=== PATIENT | female | born 1970 | race Caucasian/White ===

== ENCOUNTER → 2016-09-06 | Outpatient (CLI) | payer BC ==
[~2016-09-06] MED LIST: BCPILLS PO; LVNIS150 SQ; WARF5TAB90 PO
== END | disposition home or self-care (01) ==
LOC: C.PATHSPEC 17:18
PROVIDERS: ATTEND Obstetrics & Gynecology
DX: N93.9 Abnormal uterine and vaginal bleeding, unspecified (principal)

== ENCOUNTER → 2016-09-06 | Outpatient (CLI) | payer BC ==
[2016-09-06 15:43] LABS: HEMATOCRIT 40.4 % (37-47); MEAN CELL VOLUME 93.1 fL (80-100); MEAN CORPUSCULAR HEMOGLOBIN 30.9 pg (25-34); MEAN CORPUSCULAR HGB CONC 33.2 g/dl (32-36); MEAN PLATELET VOLUME 9.1 fL (7.4-10.4); PLATELET COUNT 265 K/uL (130-400); RED BLOOD COUNT 4.34 M/uL (4.2-5.4); WHITE BLOOD COUNT 10.26 K/uL (4.8-10.8)
== END | disposition home or self-care (01) ==
LOC: C.LAB1850 14:51
PROVIDERS: ATTEND Obstetrics & Gynecology
DX: N93.9 Abnormal uterine and vaginal bleeding, unspecified (principal)

== ENCOUNTER → 2016-11-16 | Day surgery (SDC) | payer BC ==
[2016-10-31 12:44] VITALS: Ht 160 cm; Wt 79.5 kg
[~2016-11-16] VITALS: Ht 160 cm; Wt 79.5 kg
[~2016-11-16] MED LIST changes: +ATROPINE SULFATE 0.1 MG/ML 5ML SYR IV PRN; -BCPILLS PO; +DEXAMETHASONE SOD INJ 4 MG/ML VIAL ONE; +EpHEDrine SULFATE INJ 50 MG/ML AMP IV PRN; +FENTANYL CITRATE INJ 50 MCG/1 ML 2 ML VIAL IV PRN; +FENTANYL CITRATE INJ 50 MCG/1 ML 2 ML VIAL ONE; +HYDROmorphone INJ 1 MG/ML SYR IV PRN; +IBUPROFEN 600 MG TAB PO PRN; +KETOROLAC TROMETHAMINE 30 MG/ML VIAL IV. PRN; +KETOROLAC TROMETHAMINE 30 MG/ML VIAL ONE; +LACTATED RINGER'S 1000ML 1,000 ML IV SCH; +LIDOCAINE HCL 2% 2 ML VIAL (20MG/ML) ONE; -LVNIS150 SQ; +MIDAZOLAM HCL 1 MG/ML 2ML VIAL ONE; +ONDANSETRON INJ 2 MG/ML 2 ML VIAL IV PRN; +ONDANSETRON INJ 2 MG/ML 2 ML VIAL ONE; +OXYCODONE/ACETAMINOPHEN 5-325 TAB PO PRN; +PROMETHAZINE HCL INJ 12.5 MG in SODIUM CHLORIDE 0.9% 50ML 50 ML IV PRN; +PROPOFOL IV EMULSION 10 MG/ML 20 ML VIAL IV ONE; +SODIUM CHLORIDE 0.9% 1000ML 1,000 ML IV SCH; -WARF5TAB90 PO
--- NOTE | 2016-11-16 10:31 | History & Physical Bridge - [place] ---
H&P Re-Evaluation Bridge Note: I have examined the patient, reviewed the History & Physical and in the interval since the performance of the History & Physical I have noted the following changes of clinical significance: No changes noted
--- NOTE | 2016-11-16 11:14 | Discharge Instructions ---
Discharge Instructions Date of Service Nov 16, 2016. Admission Reason for Admission: Abnormal Uterine Bleeding, Abnormal Us Of Pelvis Discharge Discharge Diagnosis / Problem: after surgery Discharge Goals Goal(s): Routine recovery after surgery Activity Recommendations Activity Limitations: as noted below . Instructions / Follow-Up Instructions / Follow-Up ACTIVITY RECOMMENDATIONS: * Avoid tampons, douching, hot tubs, pools, and intercourse until bleeding has stopped. * May shower as usual. * No strenuous activity for 24-48 hours. After 24-48 hours, you may do anything you feel like doing (driving and sports are okay). SPECIAL CARE INSTRUCTIONS: Special Diet: * Mild nausea may occur in the immediate post-operative period. * Take clear liquids such as tea, cola or bouillon until all nausea has subsided; you may then resume your normal diet. Special Care: * Light bleeding and vaginal spotting can last from a few days to 3-4 weeks. Call your doctor if bleeding becomes heavier than the heaviest part of your period. * Check your temperature twice a day for one week. If it goes above 100.4 degrees Fahrenheit (38.0 Celsius), notify your doctor. * Call your doctor's office for an appointment for 4 weeks after your surgery. FOLLOW-UP VISIT: Call your doctor's office for an appointment for 4 weeks after your surgery. You already had appointment for 12/11/16 at 1215pm. That actually is better because we can check on your strings more at the 4wk zack. Use condoms for control for at least one month. Current Hospital Diet Patient's current hospital diet: Discharge Diet Recommended Diet: Regular Diet Procedures Procedures Performed: Dilatation And Curettage, Hysteroscopy, Mirena Insertion Pending Studies Studies pending at discharge: yes List of pending studies: pathology Medical Emergencies . Who to Call and When: Medical Emergencies: If at any time you feel your situation is an emergency, please call 911 immediately. . Non-Emergent Contact Non-Emergency issues call your: Rides Supervisor . . "Provider Documentation" section prepared by Yanira Nuñez. . VTE Core Measure Inpt VTE Proph given/why not?: Treatment not indicated
--- NOTE | 2016-11-16 11:20 | [facility] Operative Report ---
Operative Report Operative Date Nov 16, 2016. Pre-Operative Diagnosis Abnormal Uterine Bleeding, Abnormal ultrasound findings. Post-Operative Diagnosis Same, no evidence of endometrial lesion Procedure(s) Performed Dilatation And Curettage, Hysteroscopy, Mirena Insertion Surgeon Dr Nuñez Molasses Coloring Operator Surgeon(s) None Estimated Blood Loss 0ml Findings uterus sounds to 10cm. nl cavity. no evidence of obvious polyp. mirena IUD placed with ease. Lot # [id number]. Strings trimmed to 2cm. RNA probe obtained and sent prior to her prep. Fluids (cc crystalloids) 300 Specimens A: Endometrial Currettings Drains none Anesthesia general Complication(s) None Disposition Recovery Room / PACU Indications 46-year-old 3 para 3 with a history of abnormal uterine bleeding and ultrasound suggestive of endometrial polyps who desired surgical management. The patient desired Mirena IUD to manage her abnormal uterine bleeding after polyp removal as she also was a need for good contraception. She was aware of all of her treatment options and desired to proceed. Description of Procedure Patient was taken to the operating room and identified. After adequate general anesthesia was obtained she is placed in the dorsal lithotomy position, an RNA vaginal swab was obtained and then she was prepped and draped in the usual sterile fashion. The bladder was drained for clear yellow urine. A weighted speculum and anterior retractor placed to visualize the cervix which was grasped on its anterior lip with an Allis clamp. The cervix was sequentially dilated using Hegar dilators to 21. The diagnostic hysteroscope primed with saline media was gently placed through the cervical os into the uterine cavity with the findings as noted above. The hysteroscope was then removed. The uterus was curettaged to a gritty consistency and the specimen was sent. The Mirena IUD was readied and placed in the usual fashion and the strings were trimmed to 2 cm. At this point the procedure was terminated. The patient was returned to the supine position and awoken from anesthesia and transferred to the recovery room in stable condition. All sponge lap and needle counts are correct 2. I attest to the content of the Intraoperative Record and any orders documented therein. Any exceptions are noted below.
[2016-11-16 12:04] VITALS: TEMP 36.4
--- NOTE | 2016-11-16 12:09 | Anesthesia Progress Nt - [facility] ---
Anesthesia Post Op Note Date & Time Nov 16, 2016 at 12:08 Vital Signs Pain Intensity: 0 Vital Signs Past 12 Hours Date Time Temp Pulse Resp B/P (MAP) Pulse Ox O2 Delivery O2 Flow Rate FiO2 11/16/16 12:04 36.4 61 16 138/91 (107) 96 Room Air 11/16/16 11:46 117/79 11/16/16 11:44 58 14 96 11/16/16 11:44 36.5 58 14 11/16/16 11:41 113/79 11/16/16 11:39 59 15 11/16/16 11:39 60 15 96 11/16/16 11:36 106/76 11/16/16 11:34 62 16 97 11/16/16 11:34 64 16 11/16/16 11:31 109/76 11/16/16 11:29 63 16 11/16/16 11:29 63 16 96 11/16/16 11:26 108/72 11/16/16 11:24 66 15 11/16/16 11:24 64 15 98 11/16/16 11:21 98/69 11/16/16 11:19 64 12 99 11/16/16 11:19 64 12 11/16/16 11:16 110/81 11/16/16 11:15 102/70 11/16/16 11:15 36.4 61 12 102/70 97 Mask 6 11/16/16 09:54 37.0 70 16 133/89 (104) 98 Room Air Notes Mental Status: alert / awake / arousable, participated in evaluation Pt Amnestic to Procedure: Yes Nausea / Vomiting: adequately controlled Pain: adequately controlled Airway Patency, RR, SpO2: stable & adequate BP & HR: stable & adequate Hydration State: stable & adequate Anesthetic Complications: no major complications apparent
[2016-11-16 12:19] VITALS: BP 133/86; PULSE 61; O2SAT 100
[2016-11-19 14:27] LABS: CHLAMYDIA TRACH RNA*** NOT DETECTED (NOT DETECTED); GC (NEIS GONORRHOEAE)RNA** NOT DETECTED (NOT DETECTED)
== END | disposition home or self-care (01) ==
LOC: X.SURG 09:42
PROVIDERS: ATTEND Obstetrics & Gynecology
DX: N93.8 Other specified abnormal uterine and vaginal bleeding (principal); Z30.014 Encounter for initial prescription of intrauterine contraceptive device; Z87.891 Personal history of nicotine dependence

== ENCOUNTER → 2016-12-11 | Outpatient (CLI) | payer BC ==
--- NOTE | 2016-12-11 16:35 | DIAGNOSTIC IMAGING REPORT ---
LEFT LOWER EXTREMITY VENOUS DOPPLER CLINICAL HISTORY: Left lower extremity pain and swelling. COMPARISON STUDY: Left lower extremity venous Doppler October 19, 2015. TECHNIQUE: Sonography of the deep venous system of the left lower extremity was performed. Compression and augmentation were evaluated. FINDINGS: The left common femoral, superficial femoral and popliteal veins were compressible. Augmentation was normal. Flow was shown within the deep calf vessels. IMPRESSION: No evidence of deep venous thrombus within the left lower extremity. Electronically signed by: Yoan Hutchison M.D. 12/11/2016 4:33 PM Dictated Date/Time: 12/11/2016 4:33 PM
== END | disposition home or self-care (01) ==
LOC: C.ULTR 16:04
PROVIDERS: ATTEND Obstetrics & Gynecology
DX: I82.429 Acute embolism and thrombosis of unspecified iliac vein (principal); M79.669 Pain in unspecified lower leg

== ENCOUNTER → 2017-08-08 | Outpatient (CLI) | payer BC | END | disposition home or self-care (01) | LOC: C.LABSPEC 17:37 | PROVIDERS: ATTEND Obstetrics & Gynecology | DX: N93.9 Abnormal uterine and vaginal bleeding, unspecified (principal) ==

== ENCOUNTER → 2017-08-08 | Outpatient (CLI) | payer BC | END | disposition home or self-care (01) | LOC: C.PAPS 09:39 | PROVIDERS: ATTEND Obstetrics & Gynecology | DX: Z01.411 Encounter for gynecological examination (general) (routine) with abnormal findings (principal); R87.618 Other abnormal cytological findings on specimens from cervix uteri ==